=== PATIENT | female | born 1965 | race African-American/Black ===

== ENCOUNTER 2017-08-28 09:29 | Observation (INO) | payer MEDICARE, MEDICAID ==
[2017-08-28] VITALS (10 sets, daily range): BP systolic 101–161; BP diastolic 54–96; PULSE 69–108; RESP 13–22; TEMP 97.9–98.4; O2SAT 97–100
[~2017-08-28] VITALS: Ht 157.5 cm; Wt 79.0 kg
[~2017-08-28 09:29] MED LIST: ADVA100A; AMBI10TA PO; DIOV320T PO; LORA-392 PO; LORTA10 PO; SOMA350T PO
[2017-08-28] MEDS ORDERED: SODIUM CHLOR 0.9% 1000 ML INJ 1,000 ML IV SCH (10:24)
--- NOTE | 2017-08-28 10:28 | PD ---
HPI Chief Complaint: Allergic/Adverse Reaction Time Seen by Provider: 09:46 Travel History International Travel<30 days: No Contact w/Intl Traveler<30days: No Traveled to known affect area: No History of Present Illness HPI The patient is a 51-year-old after [place] female who presents emergency department for allergic reaction. The patient recently took an unknown antibiotic for 7 days for UTI was placed on a muscle relaxer 3 weeks ago. The patient developed diffuse hives on the arms, neck, and legs last night which is progressed. She complains of severe itching, to 2 Benadryl prior to arrival with minimal alleviation of her symptoms. She does complain of occasional difficulty swallowing, but denies any wheezing, shortness breath, nausea, vomiting, or abdominal pain. She does have a history of allergies to amoxicillin and codeine. She cannot recall the name of the antibiotic for the UTI. Symptoms are moderate, possibly exacerbated by taking medications, and there are no current alleviating factors. PFSH Past Medical History Anemia: Yes Arthritis: No Asthma: Yes Autoimmune Disease: No Blood Disorders: No Anxiety: Yes Depression: Yes Cancer: No Cardiovascular Problems: No Chemotherapy: No COPD: No Diabetes: Yes Patient Takes Glucophage: No Diminished Hearing: No Endocrine: No Gastrointestinal Disorders: No Genitourinary: No Hypertension: Yes Immune Disorder: No Musculoskeletal: Yes Neurologic: No Psychiatric: Yes Reproductive: No Respiratory: Yes Radiation Therapy: No Sleep Apnea: No ?: Not : 2 Para: 1 Miscarriage: 0 : 1 Tubal Ligation: Yes (1991) Past Surgical History Abdominal Surgery: No AICD: No Arteriovenous Shunt: No Cardiac Surgery: No Ear Surgery: No Endocrine Surgery: No Eye Surgery: No Genitourinary Surgery: No Gynecologic Surgery: No Insulin Pump: No Joint Replacement: No Neurologic Surgery: Yes (C2-3, C4-5 FUSIONS (NECK SURG X3)) Oral Surgery: No Pacemaker: No Thoracic Surgery: No Other Surgery: Yes Social History Alcohol Use: Yes () Tobacco Use: No (quit 14 years ago ) Substance Use: No Allergies-Medications (Allergen,Severity, Reaction): Coded Allergies: amoxicillin (Unverified Allergy, Severe, Itching, 08/28/17) codeine (Unverified Allergy, Severe, Itching, 08/28/17) Reported Meds & Prescriptions Reported Meds & Active Scripts Active Pepcid (Famotidine) 20 Mg Tab 20 Mg PO BID 5 Days Diphenhydramine (Diphenhydramine HCl) 25 Mg Cap 25 Mg PO Q6H PRN Deltasone (Prednisone) 20 Mg Tab 40 Mg PO DAILY 4 Days Epipen 2-Moy Inj (Epinephrine) 0.3 Mg/0.3 Ml Pfpen 0.3 Mg IM ONCE PRN Reported [muscle relaxer] [antibiotic ] Review of Systems Except as stated in HPI: all other systems reviewed are Neg General / Constitutional: No: Fever HENT: Positive: Other (occasional pain with swallowing and difficulty with swallowing), No: Lightheadedness Cardiovascular: No: Chest Pain or Discomfort Respiratory: No: Shortness of Breath, Wheezing Gastrointestinal: No: Nausea, Vomiting, Abdominal Pain Musculoskeletal: Positive: Edema Skin: Positive Rash, Positive Itching Physical Exam Narrative GENERAL: Awake, alert, pleasant 51-year-old female appears her stated age and is in no acute respiratory distress. SKIN: Focused skin assessment warm/dry. Diffuse hives on the arms, legs, neck, and back. HEAD: Atraumatic. Normocephalic. EYES: Pupils equal and round. No scleral icterus. No injection or drainage. ENT: No nasal bleeding or discharge. Mucous membranes pink and moist. No visible angioedema of the uvula, tongue, or lips. NECK: Trachea midline. No JVD. CARDIOVASCULAR: Regular, tachycardic with a heart rate of 100. RESPIRATORY: No accessory muscle use. Clear to auscultation. Breath sounds equal bilaterally. No audible wheezing. No rebound tenderness. GASTROINTESTINAL: Abdomen soft, non-tender, nondistended. Hepatic and splenic margins not palpable. MUSCULOSKELETAL: No obvious deformities. No clubbing. No cyanosis. No edema. NEUROLOGICAL: Awake and alert. No obvious cranial nerve deficits. Motor grossly within normal limits. Normal speech. PSYCHIATRIC: Appropriate mood and affect; insight and judgment normal. Data Data Last Documented VS Vital Signs Date Time Temp Pulse Resp B/P (MAP) Pulse Ox O2 Delivery O2 Flow Rate FiO2 08/28/17 12:54 109 91/54 08/28/17 12:30 16 99 Room Air 08/28/17 09:30 97.9 Orders Orders Ecg Monitoring (08/28/17 10:24) Iv Access Insert/Monitor (08/28/17 10:24) Oximetry (08/28/17 10:24) Diphenhydramine Inj (Benadryl Inj) (08/28/17 10:30) Methylprednisolone So Succ Inj (Solumedr (08/28/17 10:30) Famotidine Inj (Pepcid Inj) (08/28/17 10:30) Sodium Chlor 0.9% 1000 Ml Inj (Ns 1000 M (08/28/17 10:24) Sodium Chloride 0.9% Flush (Ns Flush) (08/28/17 10:30) Epinephrine (1:1000) Inj (Adrenalin (1:1 (08/28/17 10:30) Diphenhydramine Inj (Benadryl Inj) (08/28/17 12:45) Sodium Chlor 0.9% 1000 Ml Inj (Ns 1000 M (08/28/17 12:45) Epinephrine (1:1000) Inj (Adrenalin (1:1 (08/28/17 12:45) Complete Blood Count With Diff (08/28/17 12:48) Comprehensive Metabolic Panel (08/28/17 12:48) Admit Order (Ed Use Only) (08/28/17 ) [place] [facility] / Telemetry ALMAS.Q8H (08/28/17 13:14) Vital Signs (Adult) Q4H (08/28/17 13:14) Diet Heart Healthy (08/28/17 Lunch) Activity Oob With Assistance (08/28/17 13:14) Morphine Inj (Morphine Inj) (08/28/17 13:30) Ondansetron Inj (Zofran Inj) (08/28/17 13:30) Labs Laboratory Tests Test 08/28/17 12:55 White Blood Count 10.3 TH/MM3 Red Blood Count 4.24 MIL/MM3 Hemoglobin 12.3 GM/DL Hematocrit 36.0 % Mean Corpuscular Volume 85.0 FL Mean Corpuscular Hemoglobin 29.0 PG Mean Corpuscular Hemoglobin Concent 34.1 % Red Cell Distribution Width 15.2 % Platelet Count 396 TH/MM3 Mean Platelet Volume 9.3 FL Neutrophils (%) (Auto) 80.9 % Lymphocytes (%) (Auto) 15.8 % Monocytes (%) (Auto) 2.8 % Eosinophils (%) (Auto) 0.3 % Basophils (%) (Auto) 0.2 % Neutrophils # (Auto) 8.3 TH/MM3 Lymphocytes # (Auto) 1.6 TH/MM3 Monocytes # (Auto) 0.3 TH/MM3 Eosinophils # (Auto) 0.0 TH/MM3 Basophils # (Auto) 0.0 TH/MM3 CBC Comment DIFF FINAL Differential Comment MDM Medical Decision Making Medical Screen Exam Complete: Yes Emergency Medical Condition: Yes Medical Record Reviewed: Yes Interpretation(s) Laboratory Tests Test 08/28/17 12:55 White Blood Count 10.3 TH/MM3 Red Blood Count 4.24 MIL/MM3 Hemoglobin 12.3 GM/DL Hematocrit 36.0 % Mean Corpuscular Volume 85.0 FL Mean Corpuscular Hemoglobin 29.0 PG Mean Corpuscular Hemoglobin Concent 34.1 % Red Cell Distribution Width 15.2 % Platelet Count 396 TH/MM3 Mean Platelet Volume 9.3 FL Neutrophils (%) (Auto) 80.9 % Lymphocytes (%) (Auto) 15.8 % Monocytes (%) (Auto) 2.8 % Eosinophils (%) (Auto) 0.3 % Basophils (%) (Auto) 0.2 % Neutrophils # (Auto) 8.3 TH/MM3 Lymphocytes # (Auto) 1.6 TH/MM3 Monocytes # (Auto) 0.3 TH/MM3 Eosinophils # (Auto) 0.0 TH/MM3 Basophils # (Auto) 0.0 TH/MM3 CBC Comment DIFF FINAL Differential Comment Differential Diagnosis Differential diagnosis includes idiopathic urticaria, allergic reaction, anaphylaxis, dermatitis, medication side effect. Narrative Course IV was established, labs are drawn and sent, and the patient was placed on cardiac telemetry monitoring and continuous pulse ox imaging monitoring. The patient was administered epinephrine 0.3 mg IM. The patient did receive Solu- Medrol 125 mg intravenously, Pepcid 20 mg intravenously, Benadryl 25 mg intravenously with normal saline and 125 mL per hour. The patient was monitored on cardiac monitoring and continuous pulse oximetry monitoring. I did advise the patient she would be observed for 4 hours after the administration of epinephrine IM, patient is comfortable with this plan of care. The patient developed increasing symptoms once again at 2030 p.m. with right leg pain as well as new lesions on the right leg. The patient's systolic blood pressure was in the 90s, heart rate was in the 90s, and she had returning symptoms. Therefore, the patient was administered another dose of IV fluids, Benadryl, and epinephrine IM. The patient will be 23 hour observation. The on- call medical team was paged for 23 hour observation. The patient complained of right leg pain with the return of the urticaria. It did appear to be over the uric area site, did not appear to be related to the injection site. She had positive dorsalis pedal pulses. The skin was not taut , did not appear to be a compartment syndrome are identifiable hematoma. The patient's systolic blood pressure improved to 168, therefore, the patient was animal therapist morphine and Zofran. I discussed the patient with Dr. Lopez who agrees with 23 hour observation. Critical Care Narrative Aggregate critical care time was 35 minutes. Time to perform other separately billable procedures was not included in the critical care time. My time did not include minutes spent treating any other patients simultaneously or on activities that did not directly contribute to the patient's treatment. The services I provided to this patient were to treat and/or prevent clinically significant deterioration that could result in: Anoxia, hypoxia, anaphylaxis, stridor, . I provided critical care services requiring my management, as noted below: Chart data review, documentation time, medication orders and management, vital sign assessments/reviewing monitor data, ordering and reviewing lab tests, ordering and interpreting/reviewing x-rays and diagnostic studies, care of the patient and discussion of the patient with the admitting physicians. Physician Communication Physician Communication The on-call medical team was paged for 23 hour observation. I discussed the patient with Dr. Medellin who agrees with 23 hour observation. Diagnosis Primary Impression: Idiopathic urticaria Additional Impression: Allergic reaction Qualified Codes: T78.40XA - Allergy, unspecified, initial encounter Admitting Information Admitting Physician Requests: Observation Patient Instructions: General Instructions Additional Instructions: Medications as directed. Follow-up with her primary physician. Return if symptoms worsen or progress. Med/Other Pt SpecificInfo: Prescription(s) given Scripts Famotidine (Pepcid) 20 Mg Tab 20 MG PO BID for 5 Days, #10 TAB 0 Refills Prov: Triston Castellanos MD 08/28/17 Diphenhydramine (Diphenhydramine) 25 Mg Cap 25 MG PO Q6H Y for ALLERGIES, #20 CAP 0 Refills Prov: Triston Castellanos MD 08/28/17 Prednisone (Deltasone) 20 Mg Tab 40 MG PO DAILY for 4 Days, #8 TAB 0 Refills Prov: Triston Castellanos MD 08/28/17 Epinephrine Inj (Epipen 2-Moy Inj) 0.3 Mg/0.3 Ml Pfpen 0.3 MG IM ONCE Y for ALLERGIC REACTION, #1 PACK 0 Refills Prov: Triston Castellanos MD 08/28/17 Condition: Stable Triston Castellanos MD Aug 28, 2017 10:28
[2017-08-28] MEDS ORDERED: diphenhydrAMINE HCL 50 MG/ML VIAL IVP ONE (10:30)
[2017-08-28] MEDS ORDERED: methylPREDNISolone SOD SUCC 125 MG/2 ML VIAL IV PUSH ONE (10:30)
[2017-08-28] MEDS ORDERED: SODIUM CHLORIDE 0.9% FLUSH 10 ML FLUSH IV FLUSH PRN ×2 (10:30→13:30)
[2017-08-28] MEDS ORDERED: EPINEPHrine HCL (1:1000) 1 MG/ML VIAL IM ONE ×2 (10:30→12:45)
[2017-08-28] MEDS ORDERED: FAMOTIDINE 20 MG/2 ML VIAL IV PUSH ONE (10:30)
[2017-08-28] MEDS ORDERED: antibiotic (10:49)
[2017-08-28] MEDS ORDERED: muscle relaxer (10:49)
[2017-08-28] MEDS ORDERED: PRED-503 PO (12:31)
[2017-08-28] MEDS ORDERED: EPIP0.3I IM (12:31)
[2017-08-28] MEDS ORDERED: DIPH25CA PO (12:31)
[2017-08-28] MEDS ORDERED: FAMO1TAB37 PO (12:31)
[2017-08-28] MEDS ORDERED: SODIUM CHLOR 0.9% 1000 ML INJ 1,000 ML IV ONE (12:45)
[2017-08-28] MEDS ORDERED: diphenhydrAMINE HCL 50 MG/ML VIAL IV PUSH ONE (12:45)
[2017-08-28 13:13] LABS: AUTOMATED NEUTROPHIL # 8.3 TH/MM3 (1.8-7.7); BASOPHIL % 0.2 % (0.0-2.0); EOSINOPHIL % 0.3 % (0.0-4.0); HEMO FLAGS DIFF FINAL; LYMPH % 15.8 % (9.0-44.0); LYMPHOCYTE # 1.6 TH/MM3 (1.0-4.8); MEAN CORPUSCULAR HGB CONC 34.1 % (32.0-36.0); MONO % 2.8 % (0.0-8.0); NEUT % 80.9 % (16.0-70.0); PLATELET COUNT 396 TH/MM3 (150-450); RED BLOOD COUNT 4.24 MIL/MM3 (4.00-5.30); RED CELL DISTRIBUTION WIDTH 15.2 % (11.6-17.2); WHITE BLOOD COUNT 10.3 TH/MM3 (4.0-11.0)
[2017-08-28] MEDS ORDERED: ONDANSETRON HCL 4 MG/2 ML VIAL IV PUSH ONE (13:30)
[2017-08-28] MEDS ORDERED: MORPHINE SULFATE 4 MG/ML INJ IV PUSH ONE (13:30)
[2017-08-28] MEDS ORDERED: NALOXONE HCL 0.4 MG/ML AMP IV PUSH PRN (13:30)
--- NOTE | 2017-08-28 13:51 | HHI.HP ---
HPI Service [facility] Primary Care Physician Peewee Abdalla, DO Admission Diagnosis anaphylaxis, idiopathic urticaria Diagnoses: Travel History International Travel<30 Days: No Contact w/Intl Traveler <30 Da: No Traveled to Known Affected Are: No History of Present Illness woke up with severe itching scratched all over and had welts starting at home, painful, burning was feelig of throat closing took benadryl no help family brought her in er, got epit and shots after that RLE extereme pain antibiotics was presecribed 7 days course, finished it about 1 week ago or longer soma was stopped and started new msucles [facility] took that since last appointment- which was 2 weeks or longer ago- end of last month new home not allergic to soap or detergens that she knows of has hx of asthma and dm has runny nose and lots of coughing at night past few day no fever pain on urination urinary frequency with less amount coming out pains in chest past few days, and some stomach pain no diarrhea threw up once 3 days ago, no black or red color felt dizzy little bit on thursday Past Family Social History Past Medical History htn dm asthma- twice a day neb use hx of intubation only for neck sx and maybe 24hrs due to asthma post op Past Surgical History neck surgery - from trauma- take or put a bone in it- wore a collar for over a year ; about 3 yrs ago or longer tubes tied hysterectomy heel sx left elbow sx \ Reported Medications [facility] 30units at night lortab 10 soma is stopped panic attack med- blood pressure med ambien acid reflux med Allergies: Coded Allergies: amoxicillin (Unverified Allergy, Severe, Itching, 08/28/17) codeine (Unverified Allergy, Severe, Itching, 08/28/17) Family History mom, sister- thyroid problems mom- liver problem, dm Social History used to smoke, quit 14yrs ago has not had a drink for about 3 weeks, ususally 2 liquor - about a pint every other day no drugs Physical Exam Vital Signs Vital Signs Date Time Temp Pulse Resp B/P (MAP) Pulse Ox O2 Delivery O2 Flow Rate FiO2 08/28/17 12:54 109 91/54 08/28/17 12:30 92 16 101/62 (75) 99 Room Air 08/28/17 10:45 99 Room Air 08/28/17 10:45 99 17 124/86 (99) 100 Room Air 08/28/17 10:44 99 129/67 08/28/17 09:42 18 100 08/28/17 09:30 97.9 108 13 131/82 (98) 99 Physical Exam GENERAL: This is a well-nourished, well-developed patient, in no apparent distress. SKIN: No rashes, ecchymoses or lesions. Cool and dry. HEAD: Atraumatic. Normocephalic. No temporal or scalp tenderness. EYES: Pupils equal round and reactive. Extraocular motions intact. No scleral icterus. No injection or drainage. ENT: Nose without bleeding, purulent drainage or septal hematoma. Throat without erythema, tonsillar hypertrophy or exudate. Uvula midline. Airway patent. NECK: Trachea midline. No JVD or lymphadenopathy. Supple, nontender, no meningeal signs. CARDIOVASCULAR: Regular rate and rhythm without murmurs, gallops, or rubs. RESPIRATORY: Clear to auscultation. Breath sounds equal bilaterally. No wheezes , rales, or rhonchi. GASTROINTESTINAL: Abdomen soft, non-tender, nondistended. No hepato-splenomegaly , or palpable masses. No guarding. MUSCULOSKELETAL: Extremities without clubbing, cyanosis, or edema. No joint tenderness, effusion, or edema noted. No calf tenderness. Negative Homans sign bilaterally. NEUROLOGICAL: Awake and alert. Cranial nerves II through XII intact. Motor and sensory grossly within normal limits. Five out of 5 muscle strength in all muscle groups. Normal speech. Laboratory Laboratory Tests Test 08/28/17 12:55 White Blood Count 10.3 Red Blood Count 4.24 Hemoglobin 12.3 Hematocrit 36.0 Mean Corpuscular Volume 85.0 Mean Corpuscular Hemoglobin 29.0 Mean Corpuscular Hemoglobin Concent 34.1 Red Cell Distribution Width 15.2 Platelet Count 396 Mean Platelet Volume 9.3 Neutrophils (%) (Auto) 80.9 Lymphocytes (%) (Auto) 15.8 Monocytes (%) (Auto) 2.8 Eosinophils (%) (Auto) 0.3 Basophils (%) (Auto) 0.2 Neutrophils # (Auto) 8.3 Lymphocytes # (Auto) 1.6 Monocytes # (Auto) 0.3 Eosinophils # (Auto) 0.0 Basophils # (Auto) 0.0 CBC Comment DIFF FINAL Differential Comment Result Diagram: 08/28/17 1255 Caprini VTE Risk Assessment Caprini Risk Assessment Model Point Value = 1 Point Value = 2 Point Value = 3 Point Value = 5 Age 41-60 Minor surgery BMI > 25 kg/m2 Swollen legs Varicose veins or History of unexplained or recurrent spontaneous Oral contraceptives or hormone replacement Sepsis (< 1 month) Serious lung disease, including pneumonia (< 1 month) Abnormal pulmonary function Acute myocardial infarction Congestive heart failure (< 1 month) History of inflammatory bowel disease Medical patient at bed rest Age 61-74 Arthroscopic surgery Major open surgery (> 45 min) Laparoscopic surgery (> 45 min) Malignancy Confined to bed (> 72 hours) Immobilizing plaster cast Central venous access Age >= 75 History of VTE Family history of VTE Factor V Leiden Prothrombin [id number] Lupus anticoagulant Anticardiolipin antibodies Elevated serum homocysteine Heparin-induced thrombocytopenia Other congenital or acquired thrombophilia Stroke (< 1 month) Elective arthroplasty Hip, pelvis, or leg fracture Acute spinal cord injury (< 1 month) Prophylaxis Regimen Total Risk Factor Score Risk Level Prophylaxis Regimen 0-1 Low Early ambulation 2 Moderate Order ONE of the following: *Sequential Compression Device (SCD) *Heparin 5000 units SQ BID 3-4 Higher Order ONE of the following medications: *Heparin 5000 units SQ TID *Enoxaparin/Lovenox 40 mg SQ daily (WT < 150 kg, CrCl > 30 mL/min) *Enoxaparin/Lovenox 30 mg SQ daily (WT < 150 kg, CrCl > 10-29 mL/min) *Enoxaparin/Lovenox 30 mg SQ BID (WT < 150 kg, CrCl > 30 mL/min) AND/OR *Sequential Compression Device (SCD) 5 or more Highest Order ONE of the following medications: *Heparin 5000 units SQ TID (Preferred with Epidurals) *Enoxaparin/Lovenox 40 mg SQ daily (WT < 150 kg, CrCl > 30 mL/min) *Enoxaparin/Lovenox 30 mg SQ daily (WT < 150 kg, CrCl > 10-29 mL/min) *Enoxaparin/Lovenox 30 mg SQ BID (WT < 150 kg, CrCl > 30 mL/min) AND *Sequential Compression Device (SCD) Assessment and Plan Assessment and Plan allergic rxn - source unknown recent uti chest pain on and off Gerard Medellin MD Aug 28, 2017 13:51
[2017-08-28 13:58] LABS: ALT (GPT) 27 U/L (10-53); ANION GAP 9 MEQ/L (5-15); AST (GOT) 27 U/L (15-37); BICARBONATE 25.3 MEQ/L (21.0-32.0); BLOOD UREA NITROGEN 22 MG/DL (7-18); CHLORIDE 101 MEQ/L (98-107); GLOMERULAR FILTRATION RATE 78 ML/MIN (>89); POTASSIUM 3.4 MEQ/L (3.5-5.1); SODIUM (NA) 135 MEQ/L (136-145)
[2017-08-28 14:00] LABS: ALKALINE PHOSPHATASE 89 U/L (45-117); TOTAL BILIRUBIN ADULT 0.5 MG/DL (0.2-1.0)
[2017-08-28] MEDS ORDERED: LORazepam 2 MG/ML VIAL IV PUSH ONE (14:00)
[2017-08-28] MEDS ORDERED: GLUCAGON 1 MG/ML VIAL OTHER PRN (14:00)
[2017-08-28] MEDS ORDERED: DEXTROSE 50% IN WATER 50 ML SYRINGE IV PUSH PRN (14:00)
[2017-08-28] MEDS: SODIUM CHLOR 0.9% 1000 ML INJ 1,000 ML IV SCH ×2 (14:56→21:06)
[2017-08-28] MEDS: diphenhydrAMINE HCL 50 MG/ML VIAL IV PUSH PRN (17:51)
[2017-08-28] MEDS: INSULIN ASPART SUPPLEMENTAL SCALE SQ SCH ×2 (17:51→21:56)
[2017-08-28] MEDS: methylPREDNISolone SOD SUCC 125 MG/2 ML VIAL IV PUSH PRN (21:05)
[2017-08-28] MEDS: SODIUM CHLORIDE 0.9% FLUSH 10 ML FLUSH IV FLUSH SCH (21:06)
[2017-08-28 23:07] LABS: CREATINE KINASE 249 U/L (26-192)
[2017-08-28 23:19] LABS: CKMB 0.9 NG/ML (0.5-3.6)
[2017-08-29] VITALS (10 sets, daily range): BP systolic 105–131; BP diastolic 59–86; PULSE 61–84; RESP 18; TEMP 97.5–98.6; O2SAT 98–100
[2017-08-29] MEDS: diphenhydrAMINE HCL 50 MG/ML VIAL IV PUSH PRN (07:37)
[2017-08-29] MEDS: SODIUM CHLORIDE 0.9% FLUSH 10 ML FLUSH IV FLUSH SCH ×2 (07:37→21:42)
[2017-08-29] MEDS ORDERED: MAGNESIUM HYDROXIDE SUSP 30 ML CUP PO PRN (08:45)
[2017-08-29] MEDS ORDERED: SENNOSIDES 8.6 MG TAB PO PRN (08:45)
[2017-08-29] MEDS ORDERED: ONDANSETRON HCL 4 MG/2 ML VIAL IVP PRN (08:45)
[2017-08-29] MEDS ORDERED: BISACODYL 10 MG SUPP RECTAL PRN (08:45)
[2017-08-29] MEDS ORDERED: NALOXONE HCL 0.4 MG/ML AMP IV PUSH PRN (08:45)
[2017-08-29] MEDS ORDERED: LACTULOSE SYRUP 20 GM/30 ML CUP PO PRN (08:45)
[2017-08-29] MEDS ORDERED: ACETAMINOPHEN 325 MG TAB PO PRN (08:45)
[2017-08-29] MEDS: FAMOTIDINE 20 MG TAB PO SCH ×2 (09:36→21:41)
[2017-08-29] MEDS: INSULIN ASPART SUPPLEMENTAL SCALE SQ SCH ×4 (09:36→22:05)
[2017-08-29] MEDS: DOCUSATE SODIUM 50 MG/SENNA 8.6 MG TAB PO SCH ×2 (09:36→21:41)
[2017-08-29] MEDS: ACETAMINOPHEN 325 MG TAB PO PRN ×3 (10:07→23:48)
[2017-08-29] MEDS: SODIUM CHLOR 0.9% 1000 ML INJ 1,000 ML IV SCH (10:39)
[2017-08-29] MEDS: methylPREDNISolone SOD SUCC 125 MG/2 ML VIAL IV PUSH PRN (10:39)
[2017-08-29 11:23] LABS: ANION GAP 9 MEQ/L (5-15); BLOOD UREA NITROGEN 17 MG/DL (7-18); CHLORIDE 103 MEQ/L (98-107); GLOMERULAR FILTRATION RATE 84 ML/MIN (>89); MAGNESIUM 2.2 MG/DL (1.5-2.5); POTASSIUM 3.5 MEQ/L (3.5-5.1); SODIUM (NA) 137 MEQ/L (136-145)
[2017-08-29 11:28] LABS: CREATINE KINASE 200 U/L (26-192)
[2017-08-29 11:40] LABS: CKMB 0.7 NG/ML (0.5-3.6)
[2017-08-29] MEDS ORDERED: INSULIN ASPART SUPPLEMENTAL SCALE SQ SCH (12:00)
[2017-08-29] MEDS: diphenhydrAMINE HCL 25 MG CAP PO SCH ×3 (13:07→23:49)
[2017-08-29] MEDS: CALAMINE/PRAMOXINE LOTION 180 ML BTL TOPICAL SCH ×2 (13:07→21:41)
--- NOTE | 2017-08-29 14:10 | HHI.PR ---
Subjective Remarks Follow-up allergic reaction. Still with itching but denies throat swelling and shortness of breath. Denies chest pain and abdominal pain. Still with urinary frequency. Discussed with RN Objective Vitals Vital Signs Date Time Temp Pulse Resp B/P (MAP) Pulse Ox O2 Delivery O2 Flow Rate FiO2 08/29/17 08:06 97.5 68 18 109/59 (76) 100 08/29/17 08:04 69 08/29/17 05:06 97.5 81 18 118/75 (89) 98 08/29/17 04:10 72 08/29/17 00:35 98.1 74 18 105/73 (84) 98 08/29/17 00:05 79 08/28/17 21:24 98.4 79 18 112/54 (73) 97 08/28/17 20:30 81 08/28/17 17:00 96 08/28/17 16:52 98.0 88 22 124/75 (91) 99 08/28/17 16:17 95 18 159/91 (113) 99 08/28/17 14:12 97 17 161/96 (117) 98 Room Air I/O 08/28/17 08/28/17 08/28/17 08/29/17 08/29/17 08/29/17 07:00 15:00 23:00 07:00 15:00 23:00 Intake Total 1380 ml 800 ml 240 ml Output Total 900 ml Balance 1380 ml -100 ml 240 ml Intake Oral 500 ml 240 ml IV Total 1380 ml 300 ml Output Urine Total 900 ml # Voids 1 Result Diagram: 08/28/17 1255 08/29/17 1000 Objective Remarks GENERAL: Well-developed, well-nourished in no distress SKIN: Warm and dry. Hyperemia specially in the shoulders and extremities HEAD: Atraumatic. Normocephalic. EYES: Pupils equal and round. No scleral icterus. No injection or drainage. ENT: No nasal bleeding or discharge. Mucous membranes pink and moist. No tongue swelling NECK: Trachea midline. No JVD. CARDIOVASCULAR: Regular rate and rhythm. RESPIRATORY: No accessory muscle use. Clear to auscultation. Breath sounds equal bilaterally. GASTROINTESTINAL: Abdomen soft, non-tender, nondistended. MUSCULOSKELETAL: Extremities without clubbing, cyanosis, or edema. No obvious deformities. NEUROLOGICAL: Awake and alert. No obvious cranial nerve deficits. Motor grossly within normal limits. Five out of 5 muscle strength in the arms and legs. Normal speech. PSYCHIATRIC: Appropriate mood and affect; insight and judgment normal. Procedures none A/P Problem List: (1) Allergic reaction ICD Code: T78.40XA - Allergy, unspecified, initial encounter Status: Acute Assessment and Plan Allergic reaction from ciprofloxacin and methocarbamol. Improving continue steroids, antihistamine and H2 brittany. Patient counseled Recent UTI. Still with urinary frequency. Repeat urinalysis Hypokalemia. Replaced Hypertension. Stable continue to monitor. RN to update medication list Diabetes mellitus. Expect hyperglycemia secondary to steroids. Monitor fingerstick with sliding scale coverage DVT prophylaxis with SCD and early ambulation RN to update medication list Discharge Planning Possible discharge later today or in the morning Problem Qualifiers (1) Allergic reaction: Qualified Codes: T78.40XA - Allergy, unspecified, initial encounter Thuan Dale MD Aug 29, 2017 14:10
[2017-08-29] MEDS: methylPREDNISolone SOD SUCC 125 MG/2 ML VIAL IV PUSH SCH ×2 (17:25→23:49)
[2017-08-29 22:27] LABS: BLOOD, URINE NEG (NEG); COMMENT (UR) CULT NOT INDICATED; CULTURE IF INDICATED CULT NOT INDICATED; GLUCOSE,URINE 300 mg/dL (NEG); KETONE, URINE NEG (NEG); NITRITE,URINE NEG (NEG); SQUAMOUS EPITHELIAL CELL URINE 1 /hpf (0-5); TRANSITIONAL EPI CELLS, URINE <1 /hpf; URINE COLOR YELLOW (YELLW/STRAW)
[2017-08-30] VITALS (7 sets, daily range): BP systolic 127–179; BP diastolic 67–96; PULSE 60–74; RESP 16–19; TEMP 97.6–98.3; O2SAT 99–100
[2017-08-30] MEDS: diphenhydrAMINE HCL 25 MG CAP PO SCH (05:41)
[2017-08-30] MEDS: methylPREDNISolone SOD SUCC 125 MG/2 ML VIAL IV PUSH SCH (05:43)
[2017-08-30] MEDS ORDERED: DIPH25CA PO (08:40)
[2017-08-30] MEDS ORDERED: EPIP0.3I IM (08:40)
[2017-08-30] MEDS ORDERED: ZANT150T2 PO (08:40)
[2017-08-30] MEDS ORDERED: PRED-503 PO (08:40)
--- NOTE | 2017-08-30 08:40 | HHI.DCPOC ---
Discharge Care Plan Diagnosis: (1) Allergic reaction Goals to Promote Your Health * To prevent worsening of your condition and complications * To maintain your health at the optimal level Directions to Meet Your Goals Take your medications as prescribed Follow your dietary instruction Follow activity as directed Keep your appointments as scheduled Take your immunizations and boosters as scheduled If your symptoms worsen call your PCP, if no PCP go to Urgent Care Center or Emergency Room Smoking is Dangerous to Your Health. Avoid second hand smoke Call the 24-hour hour crisis hotline for domestic abuse at Claudette Perez PA-C Aug 30, 2017 8:40 am
[2017-08-30] MEDS: CALAMINE/PRAMOXINE LOTION 180 ML BTL TOPICAL SCH (09:47)
[2017-08-30] MEDS: DOCUSATE SODIUM 50 MG/SENNA 8.6 MG TAB PO SCH (09:48)
[2017-08-30] MEDS: FAMOTIDINE 20 MG TAB PO SCH (09:48)
[2017-08-30] MEDS: INSULIN ASPART SUPPLEMENTAL SCALE SQ SCH ×3 (09:48→17:00)
[2017-08-30] MEDS: SODIUM CHLORIDE 0.9% FLUSH 10 ML FLUSH IV FLUSH SCH (09:49)
[2017-08-30] MEDS ORDERED: INSULIN DETEMIR 100 UNITS/ML VIAL SQ ONE (10:30)
[2017-08-30] MEDS ORDERED: predniSONE 20 MG TAB PO SCH (10:30)
[2017-08-30] MEDS ORDERED: diphenhydrAMINE HCL 25 MG CAP PO PRN (10:30)
[2017-08-30] MEDS ORDERED: OMEP40CA2 PO (14:10)
[2017-08-30] MEDS ORDERED: CITA20TA4 PO (14:10)
[2017-08-30] MEDS ORDERED: LOSA100T PO (14:10)
[2017-08-30] MEDS ORDERED: CIPR-9 PO (14:10)
[2017-08-30] MEDS ORDERED: LORA0.5T PO (14:10)
--- NOTE | 2017-08-30 14:57 | HHI.PR ---
Subjective Remarks Follow-up of allergic reaction. States she is improving but continues to have itching denies shortness of breath or throat swelling. Still trying to obtain medication list. Possibly patient on ARB which I explained to the patient could Possibly caused her symptoms. She's calling her family to bring in all her bottles discussed with RN Objective Vitals Vital Signs Date Time Temp Pulse Resp B/P (MAP) Pulse Ox O2 Delivery O2 Flow Rate FiO2 08/30/17 11:58 98.3 65 19 143/85 (104) 100 08/30/17 08:02 97.6 74 16 128/67 (87) 99 08/30/17 00:25 60 127/74 (91) 08/30/17 00:04 98.1 63 18 179/86 (117) 100 08/30/17 00:00 71 08/29/17 20:15 61 08/29/17 19:59 98.6 84 18 122/75 (91) 100 08/29/17 17:20 62 08/29/17 15:54 97.6 75 18 131/86 (101) 99 I/O 08/29/17 08/29/17 08/29/17 08/30/17 08/30/17 08/30/17 07:00 15:00 23:00 07:00 15:00 23:00 Intake Total 240 ml 200 ml 120 ml 1200 ml Balance 240 ml 200 ml 120 ml 1200 ml Intake Oral 240 ml 120 ml 1200 ml IV Total 200 ml # Voids 1 1 1 # Bowel Movements 0 Result Diagram: 08/28/17 1255 08/29/17 1000 Objective Remarks GENERAL: Well-developed, well-nourished in no distress SKIN: Warm and dry. Improving dermatitis CARDIOVASCULAR: Regular rate and rhythm. RESPIRATORY: No accessory muscle use. Clear to auscultation. Breath sounds equal bilaterally. GASTROINTESTINAL: Abdomen soft, non-tender, nondistended. MUSCULOSKELETAL: Extremities without clubbing, cyanosis, or edema. No obvious deformities. NEUROLOGICAL: Awake and alert. No obvious cranial nerve deficits. Motor grossly within normal limits. Five out of 5 muscle strength in the arms and legs. Normal speech. PSYCHIATRIC: Appropriate mood and affect; insight and judgment normal. Procedures none A/P Problem List: (1) Allergic reaction ICD Code: T78.40XA - Allergy, unspecified, initial encounter Status: Acute Assessment and Plan Allergic reaction from ciprofloxacin and methocarbamol. Maybe also secondary to ARB pending confirmation. Improving continue steroids, antihistamine and H2 brittany. Patient counseled Recent UTI. Still with urinary frequency. Repeat urinalysis unremarkable Hypokalemia. Replaced Hypertension. Stable continue to monitor. RN to update medication list Diabetes mellitus. Expect hyperglycemia secondary to steroids. We will restart home medication Lantus which is not in the available in-house will give instead Levemir 30 units once 1 now and at bedtime monitor fingerstick with sliding scale coverage DVT prophylaxis with SCD and early ambulation RN to update medication list Discharge Planning Possible discharge later today or in the morning Problem Qualifiers (1) Allergic reaction: Qualified Codes: T78.40XA - Allergy, unspecified, initial encounter Thuan Dale MD Aug 30, 2017 14:57
[2017-08-30] MEDS ORDERED: LANTUS2P SQ (16:50)
[2017-08-30] MEDS ORDERED: INSULIN ASPART SUPPLEMENTAL SCALE SQ SCH (17:00)
[2017-08-30] MEDS ORDERED: INSULIN DETEMIR 100 UNITS/ML VIAL SQ SCH (21:00)
--- NOTE | 2017-08-31 05:13 | HHI.DS ---
Discharge Summary Admission Date Aug 28, 2017 at 13:16 Discharge Date: Aug 31, 2017 Admitting Diagnosis anaphylaxis, idiopathic urticaria (1) Allergic reaction ICD Code: T78.40XA - Allergy, unspecified, initial encounter Diagnosis: Principal Status: Acute Procedures none Brief History - From Admission woke up with severe itching scratched all over and had welts starting at home, painful, burning was feelig of throat closing took benadryl no help family brought her in er, got epit and shots after that RLE extereme pain antibiotics was presecribed 7 days course, finished it about 1 week ago or longer soma was stopped and started new [facility] took that since last appointment- which was 2 weeks or longer ago- end of last month new home not allergic to soap or detergens that she knows of has hx of asthma and dm has runny nose and lots of coughing at night past few day no fever pain on urination urinary frequency with less amount coming out pains in chest past few days, and some stomach pain no diarrhea threw up once 3 days ago, no black or red color felt dizzy little bit on thursday CBC/BMP: 08/28/17 1255 08/29/17 1000 Significant Findings Laboratory Tests Test 08/28/17 12:55 08/28/17 13:30 08/29/17 10:00 08/29/17 22:00 Neutrophils (%) (Auto) 80.9 % (16.0-70.0) Neutrophils # (Auto) 8.3 TH/MM3 (1.8-7.7) Blood Urea Nitrogen 22 MG/DL (7-18) Random Glucose 192 MG/DL (74-106) 184 MG/DL (74-106) Calcium Level 7.9 MG/DL (8.5-10.1) 8.3 MG/DL (8.5-10.1) Sodium Level 135 MEQ/L (136-145) Potassium Level 3.4 MEQ/L (3.5-5.1) Estimat Glomerular Filtration Rate 78 ML/MIN (>89) 84 ML/MIN (>89) Total Creatine Kinase 249 U/L (26-192) 200 U/L (26-192) Troponin I LESS THAN 0.02 NG/ML LESS THAN 0.02 NG/ML Urine Glucose (UA) 300 mg/dL (NEG) Urine Leukocyte Esterase SMALL (NEG) Test 08/30/17 11:33 PE at Discharge GENERAL: Well-developed, well-nourished in no distress SKIN: Warm and dry. Improving dermatitis CARDIOVASCULAR: Regular rate and rhythm. RESPIRATORY: No accessory muscle use. Clear to auscultation. Breath sounds equal bilaterally. GASTROINTESTINAL: Abdomen soft, non-tender, nondistended. MUSCULOSKELETAL: Extremities without clubbing, cyanosis, or edema. No obvious deformities. NEUROLOGICAL: Awake and alert. No obvious cranial nerve deficits. Motor grossly within normal limits. Five out of 5 muscle strength in the arms and legs. Normal speech. PSYCHIATRIC: Appropriate mood and affect; insight and judgment normal. Hospital Course Allergic reaction from ciprofloxacin, methocarbamol and losartan. Improving continue steroids, antihistamine and H2 brittany. Patient counseled Recent UTI. Repeat urinalysis unremarkable Hypokalemia. Replaced Hypertension. Stable continue to monitor. RN to update medication list. Pt to record BP readings at home and show to PCP Diabetes mellitus. Expect hyperglycemia secondary to steroids. Levemir with sliding scale coverage DVT prophylaxis with SCD and early ambulation Pt Condition on Discharge: Stable Discharge Disposition: Discharge Home Discharge Time: > 30 minutes Discharge Instructions DIET: Follow Instructions for: Heart Healthy Diet, Diabetic Diet Activities you can perform: Regular-No Restrictions Follow up Referrals: PCP Follow-up - 1 Week with Peewee Abdalla DO New Medications: Ranitidine (Zantac) 150 Mg Tab 150 MG PO BID for Allergic Reaction, #10 TAB 0 Refills Continued Medications: Citalopram (Citalopram) 20 Mg Tab 20 MG PO DAILY for Control Depression, #30 TAB 0 Refills Diphenhydramine (Diphenhydramine) 25 Mg Cap 25 MG PO Q6H PRN for ALLERGIES, #20 CAP 0 Refills (This prescription has been renewed) Epinephrine Inj (Epipen 2-Moy Inj) 0.3 Mg/0.3 Ml Pfpen 0.3 MG IM ONCE PRN for ALLERGIC REACTION, #1 PACK 0 Refills (This prescription has been renewed) Insulin Glargine Inj (Lantus Inj) 1,000 Unit/10 Ml Vial 30 UNITS SQ HS for Blood Sugar Management, #100 VIAL 0 Refills Lorazepam (Lorazepam) 0.5 Mg Tab 0.5 MG PO HS PRN for ANXIETY AND/OR INSOMNIA, TAB 0 Refills Omeprazole (Omeprazole) 40 Mg Cap 40 MG PO DAILY, #30 CAP 0 Refills Prednisone (Deltasone) 20 Mg Tab 40 MG PO DAILY for Allergic Reaction, #5 TAB 0 Refills (This prescription has been renewed) Discontinued Medications: Ciprofloxacin (Cipro) 500 Mg Tab 500 MG PO BID for Infection, TAB 0 Refills Famotidine (Pepcid) 20 Mg Tab 20 MG PO BID for 5 Days, #10 TAB 0 Refills Losartan (Losartan) 100 Mg Tab 100 MG PO DAILY for Blood Pressure Management, #30 TAB 0 Refills [antibiotic ] () [muscle relaxer] () Thuan Dale MD Aug 31, 2017 05:13
[2017-08-31 15:45] LABS: HEMOGLOBIN A1a 1.6 %; HEMOGLOBIN A1b 2.3 %; HEMOGLOBIN Ao 80.8 %; HEMOGLOBIN LA1C 3.6 %; HEMOGLOBIN P3 4.7 %
== END 2017-08-30 18:26 | disposition home or self-care (01) ==
LOC: NEPD 09:29 → NEDA 13:16 → NEPHCDU 16:21
PROVIDERS: ADMIT Internal Medicine; ATTEND Internal Medicine
DX: N39.0 Urinary tract infection, site not specified (principal); R07.9 Chest pain, unspecified; L50.1 Idiopathic urticaria; T78.40XA Allergy, unspecified, initial encounter; M79.604 Pain in right leg; R35.0 Frequency of micturition; E87.6 Hypokalemia; R42 Dizziness and giddiness; R30.0 Dysuria; I10 Essential (primary) hypertension; J45.909 Unspecified asthma, uncomplicated; E11.65 Type 2 diabetes mellitus with hyperglycemia; F41.9 Anxiety disorder, unspecified; F32.9 Major depressive disorder, single episode, unspecified; Z87.891 Personal history of nicotine dependence
CPT/HCPCS: 80048; 80053; 81001; 82550; 82552; 82948; 83036; 83690; 83735; 84484; 85025; 96361; 96372; 96374; 96375; 96376; 99285; G0378; J0171; J1200; J1815; J2060; J2270; J2405; J2930; J7030; J7512

== ENCOUNTER 2017-09-10 19:35 | Emergency (ER) | payer MEDICARE, MEDICAID ==
[~2017-09-10] VITALS: Ht 157.5 cm; Wt 80.0 kg
[~2017-09-10 19:35] MED LIST changes: -ADVA100A; -AMBI10TA PO; +CITA20TA4 PO; -DIOV320T PO; +DIPH25CA PO; +EPIP0.3I IM; +LANTUS2P SQ; -LORA-392 PO; +LORA0.5T PO; -LORTA10 PO; +OMEP40CA2 PO; +PRED-503 PO; -SOMA350T PO; +ZANT150T2 PO
[2017-09-10 19:39] VITALS: BP 174/116; PULSE 92; RESP 24; TEMP 100.5; O2SAT 98
[2017-09-10 20:17] VITALS: BP 179/134; PULSE 104; RESP 28; O2SAT 99
[2017-09-10] MEDS ORDERED: MORPHINE SULFATE 2 MG/ML INJ IV PUSH ONE ×3 (20:30→22:00)
[2017-09-10] MEDS ORDERED: ONDANSETRON HCL 4 MG/2 ML VIAL IV PUSH ONE (20:30)
--- NOTE | 2017-09-10 20:37 | PD ---
HPI Chief Complaint: Chest Pain Time Seen by Provider: 20:09 Travel History International Travel<30 days: No Contact w/Intl Traveler<30days: No Traveled to known affect area: No History of Present Illness HPI Patient is a 51-year-old female presenting to emergency for evaluation of left chest pain. Pain started approximately an hour prior to arrival. She states pain is a 10 out of 10, she states that she felt anxious earlier and took anxiety medication. She reports feeling short of breath and nauseated. Family states that she was out having dinner when she arrived home the symptoms started. Patient is not taking any medications for the pain. HPI is difficult to elicit due to patient's pain. After patient was settled down, she states the pain started suddenly, she feels short of breath. She had been feeling fine after she was discharged from the hospital until this afternoon when the pain started again. She was recently admitted due to anaphylactic reaction. Patient denies feeling anxious. PFSH Past Medical History Anemia: Yes Arthritis: No Asthma: Yes Autoimmune Disease: No Blood Disorders: No Anxiety: Yes Depression: Yes Heart Rhythm Problems: No Cancer: No Cardiovascular Problems: No High Cholesterol: No Chemotherapy: No Chest Pain: No Congestive Heart Failure: No COPD: No Diabetes: Yes Patient Takes Glucophage: No Diminished Hearing: No Endocrine: No Gastrointestinal Disorders: No Genitourinary: No Hypertension: Yes Immune Disorder: No Musculoskeletal: Yes Neurologic: No Psychiatric: Yes Reproductive: No Respiratory: Yes Migraines: Yes (PT HAS HAS OF UNSPECIFIED KIND) Radiation Therapy: No Sleep Apnea: No ?: Not : 2 Para: 1 Miscarriage: 0 : 1 Tubal Ligation: Yes (1991) Past Surgical History Abdominal Surgery: No AICD: No Arteriovenous Shunt: No Cardiac Surgery: No Ear Surgery: No Endocrine Surgery: No Eye Surgery: No Genitourinary Surgery: No Gynecologic Surgery: No Insulin Pump: No Joint Replacement: No Neurologic Surgery: Yes (C2-3, C4-5 FUSIONS (NECK SURG X3)) Oral Surgery: No Pacemaker: No Thoracic Surgery: No Other Surgery: Yes Social History Alcohol Use: Yes ([facility]) Tobacco Use: No (quit 14 years ago ) 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) Allergies-Medications (Allergen,Severity, Reaction): Coded Allergies: amoxicillin (Unverified Allergy, Severe, Itching, 09/10/17) ciprofloxacin (Verified Allergy, Severe, Anaphylaxis, 09/10/17) codeine (Unverified Allergy, Severe, Itching, 09/10/17) losartan (Verified Allergy, Severe, Anaphylaxis, 09/10/17) methocarbamol (Verified Allergy, Severe, Anaphylaxis, 09/10/17) Reported Meds & Prescriptions Reported Meds & Active Scripts Active Lantus Inj (Insulin Glargine) 1,000 Unit/10 Ml Vial 30 Units SQ HS Zantac (Ranitidine HCl) 150 Mg Tab 150 Mg PO BID Diphenhydramine (Diphenhydramine HCl) 25 Mg Cap 25 Mg PO Q6H PRN Deltasone (Prednisone) 20 Mg Tab 40 Mg PO DAILY Epipen 2-Moy Inj (Epinephrine) 0.3 Mg/0.3 Ml Pfpen 0.3 Mg IM ONCE PRN Reported Lorazepam 0.5 Mg Tab 0.5 Mg PO HS PRN Citalopram (Citalopram Hydrobromide) 20 Mg Tab 20 Mg PO DAILY Review of Systems Except as stated in HPI: all other systems reviewed are Neg General / Constitutional: Positive: Fever, Chills Cardiovascular: Positive: Chest Pain or Discomfort Respiratory: Positive: Cough, Shortness of Breath, Pleuritic Pain Gastrointestinal: Positive: Nausea Psychiatric: Positive: Anxiety Physical Exam Narrative GENERAL: Overweight, well-developed, alert female. Appears uncomfortable, no acute distress. SKIN: Warm and dry. HEAD: Atraumatic. Normocephalic. EYES: Pupils equal and round. No scleral icterus. No injection or drainage. ENT: No nasal bleeding or discharge. Mucous membranes pink and moist. NECK: Trachea midline. No JVD. CARDIOVASCULAR: Tachycardic RESPIRATORY: No accessory muscle use. Diminished GASTROINTESTINAL: Abdomen soft, non-tender, nondistended. Hepatic and splenic margins not palpable. MUSCULOSKELETAL: Extremities without clubbing, cyanosis, or edema. No obvious deformities. NEUROLOGICAL: Awake and alert. No obvious cranial nerve deficits. Motor grossly within normal limits. Five out of 5 muscle strength in the arms and legs. Normal speech. PSYCHIATRIC: Anxious mood and affect; insight and judgment normal. Data Data Last Documented VS Vital Signs Date Time Temp Pulse Resp B/P (MAP) Pulse Ox O2 Delivery O2 Flow Rate FiO2 09/10/17 21:39 95 Room Air 09/10/17 20:17 104 28 179/134 (149) 09/10/17 19:39 100.5 Orders Orders Sepsis Workup Initiated (09/10/17 ) Complete Blood Count With Diff (09/10/17 20:17) Comprehensive Metabolic Panel (09/10/17 20:17) Prothrombin Time / Inr (Pt) (09/10/17 20:17) Act Partial Throm Time (Ptt) (09/10/17 20:17) Lactic Acid Sepsis Protocol (09/10/17 20:17) Magnesium (Mg) (09/10/17 20:17) Ckmb (Isoenzyme) Profile (09/10/17 20:17) Troponin I (09/10/17 20:17) Urinalysis - C+S If Indicated (09/10/17 20:17) Blood Culture (09/10/17 20:17) Chest, Single Ap (09/10/17 20:17) Blood Glucose (09/10/17 20:17) Ecg Monitoring (09/10/17 20:17) Iv Access Insert/Monitor (09/10/17 20:17) Oximetry (09/10/17 20:17) Oxygen Administration (09/10/17 20:17) Ondansetron Inj (Zofran Inj) (09/10/17 20:30) Morphine Inj (Morphine Inj) (09/10/17 20:30) Morphine Inj (Morphine Inj) (09/10/17 20:30) CKMB (09/10/17 20:25) CKMB% (09/10/17 20:25) Ct Pulmonary Angiogram (09/10/17 ) Electrocardiogram (09/10/17 20:13) Morphine Inj (Morphine Inj) (09/10/17 22:00) Iohexol 350 Inj (Omnipaque 350 Inj) (09/10/17 22:49) Labs Laboratory Tests Test 09/10/17 20:25 09/10/17 20:37 09/10/17 20:39 White Blood Count 10.8 TH/MM3 Red Blood Count 4.53 MIL/MM3 Hemoglobin 12.5 GM/DL Hematocrit 38.3 % Mean Corpuscular Volume 84.5 FL Mean Corpuscular Hemoglobin 27.6 PG Mean Corpuscular Hemoglobin Concent 32.7 % Red Cell Distribution Width 15.2 % Platelet Count 219 TH/MM3 Mean Platelet Volume 8.5 FL Neutrophils (%) (Auto) 80.3 % Lymphocytes (%) (Auto) 13.3 % Monocytes (%) (Auto) 4.7 % Eosinophils (%) (Auto) 1.4 % Basophils (%) (Auto) 0.3 % Neutrophils # (Auto) 8.6 TH/MM3 Lymphocytes # (Auto) 1.4 TH/MM3 Monocytes # (Auto) 0.5 TH/MM3 Eosinophils # (Auto) 0.1 TH/MM3 Basophils # (Auto) 0.0 TH/MM3 CBC Comment DIFF FINAL Differential Comment Prothrombin Time 10.3 SEC Prothromb Time International Ratio 0.9 RATIO Activated Partial Thromboplast Time 25.2 SEC Blood Urea Nitrogen 13 MG/DL Creatinine 0.95 MG/DL Random Glucose 96 MG/DL Total Protein 8.2 GM/DL Albumin 3.7 GM/DL Calcium Level 8.4 MG/DL Magnesium Level 1.8 MG/DL Alkaline Phosphatase 103 U/L Aspartate Amino Transf (AST/SGOT) 23 U/L Alanine Aminotransferase (ALT/SGPT) 26 U/L Total Bilirubin 0.5 MG/DL Sodium Level 136 MEQ/L Potassium Level 3.9 MEQ/L Chloride Level 102 MEQ/L Carbon Dioxide Level 27.5 MEQ/L Anion Gap 7 MEQ/L Estimat Glomerular Filtration Rate 75 ML/MIN Total Creatine Kinase 159 U/L Creatine Kinase MB 1.0 NG/ML Troponin I LESS THAN 0.02 NG/ML Lactic Acid Level 1.1 mmol/L Urine Color LIGHT-YELLOW Urine Turbidity CLEAR Urine pH 8.0 Urine Specific [place] 1.013 Urine Protein NEG mg/dL Urine Glucose (UA) NEG mg/dL Urine Ketones NEG mg/dL Urine Occult Blood NEG Urine Nitrite NEG Urine Bilirubin NEG Urine Urobilinogen LESS THAN 2.0 MG/DL Urine Leukocyte Esterase SMALL Urine RBC 1 /hpf Urine WBC 5 /hpf Urine Squamous Epithelial Cells 7 /hpf Urine Mucus FEW /lpf Microscopic Urinalysis Comment CATH-CULT NOT IND MDM Medical Decision Making Medical Screen Exam Complete: Yes Emergency Medical Condition: Yes Medical Record Reviewed: Yes Interpretation(s) Vital Signs Date Time Temp Pulse Resp B/P (MAP) Pulse Ox O2 Delivery O2 Flow Rate FiO2 09/10/17 20:17 104 28 179/134 (149) 99 Room Air 09/10/17 19:39 100.5 92 24 174/116 (135) 98 Room Air Differential Diagnosis Pneumonia versus bronchitis versus pleurisy versus pulmonary embolism versus UTI Narrative Course Patient presented with an abrupt onset of left-sided what appeared to be pleuritic chest pain onset was just prior to arrival. She was tachycardic and hypertensive on arrival. Labs and imaging ordered and pending. Morphine ordered for pain. Temp was reassessed at 99.7. Sepsis protocol initiated. CBC with no acute findings Lactic acid 1.1 Cardiac enzymes are negative 1 set Chemistry with no acute findings Coags reviewed and are unremarkable Urinalysis is unremarkable Chest x-ray with no acute findings, mildly tortuous aorta, previous fusion of the cervical spine. The chest x-ray was read by the radiologist. Due to patient's ongoing complaint of chest pain a CT pulmonary angiogram is ordered and pending. Care of patient will be transferred to Dr. Purcell at the end of my shift who will determine patient's disposition. Elena Kuamr CENTRAL SUPPLY ASSISTANT Sep 10, 2017 20:36
[2017-09-10 20:51] LABS: AUTOMATED NEUTROPHIL # 8.6 TH/MM3 (1.8-7.7); BASOPHIL % 0.3 % (0.0-2.0); EOSINOPHIL # 0.1 TH/MM3 (0-0.4); EOSINOPHIL % 1.4 % (0.0-4.0); HEMATOCRIT 38.3 % (35.0-46.0); HEMO FLAGS DIFF FINAL; LYMPH % 13.3 % (9.0-44.0); LYMPHOCYTE # 1.4 TH/MM3 (1.0-4.8); MEAN CELL VOLUME 84.5 FL (80.0-100.0); MEAN CORPUSCULAR HEMOGLOBIN 27.6 PG (27.0-34.0); MEAN CORPUSCULAR HGB CONC 32.7 % (32.0-36.0); MONO % 4.7 % (0.0-8.0); NEUT % 80.3 % (16.0-70.0); PLATELET COUNT 219 TH/MM3 (150-450); RED BLOOD COUNT 4.53 MIL/MM3 (4.00-5.30); RED CELL DISTRIBUTION WIDTH 15.2 % (11.6-17.2); WHITE BLOOD COUNT 10.8 TH/MM3 (4.0-11.0)
[2017-09-10 20:54] LABS: BLOOD, URINE NEG (NEG); COMMENT (UR) CATH-CULT NOT IND; CULTURE IF INDICATED CATH CULTURE NOT IND; GLUCOSE,URINE NEG (NEG); KETONE, URINE NEG (NEG); MUCUS URINE FEW /lpf (OCC); NITRITE,URINE NEG (NEG); SQUAMOUS EPITHELIAL CELL URINE 7 /hpf (0-5); URINE COLOR LIGHT-YELLOW (YELLW/STRAW)
[2017-09-10 21:03] LABS: APTT (PATIENT) 25.2 SEC (24.3-30.1); INTERNATIONAL NORMALIZED RATIO 0.9 RATIO; PROTHROMBIN TIME - PATIENT 10.3 SEC (9.8-11.6)
[2017-09-10 21:08] LABS: ALT (GPT) 26 U/L (10-53)
[2017-09-10 21:10] LABS: ANION GAP 7 MEQ/L (5-15); AST (GOT) 23 U/L (15-37); BICARBONATE 27.5 MEQ/L (21.0-32.0); BLOOD UREA NITROGEN 13 MG/DL (7-18); CHLORIDE 102 MEQ/L (98-107); GLOMERULAR FILTRATION RATE 75 ML/MIN (>89); MAGNESIUM 1.8 MG/DL (1.5-2.5); SODIUM (NA) 136 MEQ/L (136-145)
[2017-09-10 21:14] LABS: POTASSIUM 3.9 MEQ/L (3.5-5.1)
--- NOTE | 2017-09-10 21:14 | RADRPT ---
EXAM DATE/TIME: 09/10/2017 20:37 [facility] COMPARISON: No previous studies available for comparison. INDICATIONS : Short of breath and vomiting MEDICAL HISTORY : None. SURGICAL HISTORY : None. ENCOUNTER: Initial ACUITY: 1 day PAIN SCORE: 10/10 LOCATION: chest FINDINGS: A single view of the chest demonstrates the lungs to be symmetrically aerated without evidence of mas s, infiltrate or effusion. The cardiomediastinal contours are unremarkable. Osseous structures are intact. Previous fusion cervical spine. CONCLUSION: 1. No acute findings. Mildly tortuous aorta. Previous fusion cervical spine. Phong Chambers MD on September 10, 2017 at 21:12 Board Certified Radiologist. This report was verified electronically.
[2017-09-10 21:15] LABS: ALKALINE PHOSPHATASE 103 U/L (45-117); CREATINE KINASE 159 U/L (26-192); TOTAL BILIRUBIN ADULT 0.5 MG/DL (0.2-1.0)
[2017-09-10] MEDS ORDERED: IOHEXOL 350 MG/ML 10 ML VIAL (for RAD DIAG) IVCONTRAST ONE (22:49)
--- NOTE | 2017-09-10 23:07 | PD ---
Physical Exam Date Seen by Provider: Sep 10, 2017 Time Seen by Provider: 23:01 Narrative Accepted in transfer of care GENERAL: Well developed well-nourished female in no acute distress no respiratory distress SKIN: Warm and dry. Multiple excoriated abrasions to the bilateral upper extremities right greater than left which patient reports has been present since her last admission for allergic reaction. HEAD: Normocephalic. EYES: No scleral icterus. No injection or drainage. NECK: Supple, trachea midline. No JVD or lymphadenopathy. CARDIOVASCULAR: Regular rate and rhythm without murmurs, gallops, or rubs. Chest wall: Reproducibly tender to palpation and produces the pain of presentation with palpation. No hives no urticaria no vesicles no pustules no induration no ecchymosis no abrasion. RESPIRATORY: Breath sounds equal bilaterally. No accessory muscle use. GASTROINTESTINAL: Abdomen soft, non-tender, nondistended. Data Data Last Documented VS Vital Signs Date Time Temp Pulse Resp B/P (MAP) Pulse Ox O2 Delivery O2 Flow Rate FiO2 09/10/17 23:21 100.4 85 20 202/122 (148) 96 Room Air Orders Orders Sepsis Workup Initiated (09/10/17 ) Complete Blood Count With Diff (09/10/17 20:17) Comprehensive Metabolic Panel (09/10/17 20:17) Prothrombin Time / Inr (Pt) (09/10/17 20:17) Act Partial Throm Time (Ptt) (09/10/17 20:17) Lactic Acid Sepsis Protocol (09/10/17 20:17) Magnesium (Mg) (09/10/17 20:17) Ckmb (Isoenzyme) Profile (09/10/17 20:17) Troponin I (09/10/17 20:17) Urinalysis - C+S If Indicated (09/10/17 20:17) Blood Culture (09/10/17 20:17) Chest, Single Ap (09/10/17 20:17) Blood Glucose (09/10/17 20:17) Ecg Monitoring (09/10/17 20:17) Iv Access Insert/Monitor (09/10/17 20:17) Oximetry (09/10/17 20:17) Oxygen Administration (09/10/17 20:17) Ondansetron Inj (Zofran Inj) (09/10/17 20:30) Morphine Inj (Morphine Inj) (09/10/17 20:30) Morphine Inj (Morphine Inj) (09/10/17 20:30) CKMB (09/10/17 20:25) CKMB% (09/10/17 20:25) Ct Pulmonary Angiogram (09/10/17 ) Electrocardiogram (09/10/17 20:13) Morphine Inj (Morphine Inj) (09/10/17 22:00) Iohexol 350 Inj (Omnipaque 350 Inj) (09/10/17 22:49) Ketorolac Inj (Toradol Inj) (09/10/17 23:15) Influenzae A/B Antigen (09/10/17 23:21) Clonidine (Catapres) (09/10/17 23:30) Cetirizine (Zyrtec) (09/11/17 01:30) Famotidine Inj (Pepcid Inj) (09/11/17 01:30) Labs Laboratory Tests Test 09/10/17 20:25 09/10/17 20:37 09/10/17 20:39 White Blood Count 10.8 TH/MM3 Red Blood Count 4.53 MIL/MM3 Hemoglobin 12.5 GM/DL Hematocrit 38.3 % Mean Corpuscular Volume 84.5 FL Mean Corpuscular Hemoglobin 27.6 PG Mean Corpuscular Hemoglobin Concent 32.7 % Red Cell Distribution Width 15.2 % Platelet Count 219 TH/MM3 Mean Platelet Volume 8.5 FL Neutrophils (%) (Auto) 80.3 % Lymphocytes (%) (Auto) 13.3 % Monocytes (%) (Auto) 4.7 % Eosinophils (%) (Auto) 1.4 % Basophils (%) (Auto) 0.3 % Neutrophils # (Auto) 8.6 TH/MM3 Lymphocytes # (Auto) 1.4 TH/MM3 Monocytes # (Auto) 0.5 TH/MM3 Eosinophils # (Auto) 0.1 TH/MM3 Basophils # (Auto) 0.0 TH/MM3 CBC Comment DIFF FINAL Differential Comment Prothrombin Time 10.3 SEC Prothromb Time International Ratio 0.9 RATIO Activated Partial Thromboplast Time 25.2 SEC Blood Urea Nitrogen 13 MG/DL Creatinine 0.95 MG/DL Random Glucose 96 MG/DL Total Protein 8.2 GM/DL Albumin 3.7 GM/DL Calcium Level 8.4 MG/DL Magnesium Level 1.8 MG/DL Alkaline Phosphatase 103 U/L Aspartate Amino Transf (AST/SGOT) 23 U/L Alanine Aminotransferase (ALT/SGPT) 26 U/L Total Bilirubin 0.5 MG/DL Sodium Level 136 MEQ/L Potassium Level 3.9 MEQ/L Chloride Level 102 MEQ/L Carbon Dioxide Level 27.5 MEQ/L Anion Gap 7 MEQ/L Estimat Glomerular Filtration Rate 75 ML/MIN Total Creatine Kinase 159 U/L Creatine Kinase MB 1.0 NG/ML Troponin I LESS THAN 0.02 NG/ML Lactic Acid Level 1.1 mmol/L Urine Color LIGHT-YELLOW Urine Turbidity CLEAR Urine pH 8.0 Urine Specific [place] 1.013 Urine Protein NEG mg/dL Urine Glucose (UA) NEG mg/dL Urine Ketones NEG mg/dL Urine Occult Blood NEG Urine Nitrite NEG Urine Bilirubin NEG Urine Urobilinogen LESS THAN 2.0 MG/DL Urine Leukocyte Esterase SMALL Urine RBC 1 /hpf Urine WBC 5 /hpf Urine Squamous Epithelial Cells 7 /hpf Urine Mucus FEW /lpf Microscopic Urinalysis Comment CATH-CULT NOT IND MDM Medical Record Reviewed: Yes Supervised Visit with BRISA: Yes Differential Diagnosis Chest pain atypical chest pain musculoskeletal pain chronic pruritus contact dermatitis PE viral syndrome pneumonia influenza Narrative Course accepted in transfer of care; patient rates reproducible chest wall pain. Lab values and imaging studies are grossly within normal limits except for nodule found on CT pulmonary angiogram; no PE; patient has reproducible chest wall pain and given a one-time dose of Toradol. Patient noted to have persistently elevated blood pressure and clonidine 0.1 mg ordered Patient resting comfortably pain is resolved after Toradol 30 mg IV; no she reports blood pressures come down with administration of clonidine Patient complains of pruritus to the right arm which she states has been present intermittently since her diagnosis of an allergic reaction at the the beginning of August. Because of complain of pruritus without urticaria or reaction or evidence of anaphylaxis or acute allergic reaction patient will be given Zyrtec 10 mg by mouth for pruritus and also H2 brittany to help her any symptoms. Patient is otherwise stable for outpatient management at this time. Diagnosis Primary Impression: Chest wall pain Additional Impression: Chronic pruritus Referrals: Primary Care Physician call for appointment Patient Instructions: General Instructions Additional Instruction: Follow-up with your primary care provider Take chronic medications as chronically prescribed Increase fluid hydration May use [id number] Zyrtec 10 mg daily as needed for rash and pruritus Return to the emergency department for any concerns or change in condition Disposition: 01 DISCHARGE HOME Condition: Stable Janet Purcell MD Sep 10, 2017 23:07
--- NOTE | 2017-09-10 23:10 | RADRPT ---
EXAM DATE/TIME: 09/10/2017 22:38 [facility] COMPARISON: CHEST SINGLE AP, September 10, 2017, 20:37. INDICATIONS : Chest pain. IV CONTRAST: 75 cc Omnipaque 350 (iohexol) IV RADIATION DOSE: 11.77 CTDIvol (mGy) MEDICAL HISTORY : None SURGICAL HISTORY : None. ENCOUNTER: Initial ACUITY: 1 day PAIN SCALE: 5/10 LOCATION: chest TECHNIQUE: Volumetric scanning of the chest was performed using a pulmonary embolism protocol MIP images were re constructed. Using automated exposure control and adjustment of the mA and/or kV according to patien t size, radiation dose was kept as low as reasonably achievable to obtain optimal diagnostic quality images. DICOM format image data is available electronically for review and comparison. Follow-up recommendations for detected pulmonary nodules are based at a minimum on nodule size and pa tient risk factors according to Fleischner Society Guidelines. FINDINGS: PULMONARY ARTERIES: No filling defects are seen in the pulmonary arteries through the segmental level. LUNGS: There is no consolidation or pneumothorax . There is a single 4 mm noncalcified pulmonary nodule in t he left lower lobe best seen on axial image #68. PLEURAE: There is no pleural thickening or pleural effusion. MEDIASTINUM: There is good visualization of the great vessels of the middle mediastinum. No evidence of mediastin al or hilar adenopathy/mass. MUSCULOSKELETAL: Within normal limits for patient age. MISCELLANEOUS: The visualized upper abdominal organs demonstrate no acute abnormality. CONCLUSION: 1. No evidence of pulmonary emboli. 2. 4 mm noncalcified pulmonary nodule in left lower lobe. A 6 month followup noncontrast chest CT is recommended if the patient is at high risk. The patient smoking status and other risk factors are not known. Luís Schwartz MD on September 10, 2017 at 23:03 Board Certified Radiologist. This report was verified electronically.
[2017-09-10] MEDS ORDERED: KETOROLAC TROMETHAMINE 30 MG/ML (IVP) VIAL IV PUSH ONE (23:15)
[2017-09-10 23:21] VITALS: BP 202/122; PULSE 85; RESP 20; TEMP 100.4; O2SAT 96
[2017-09-10] MEDS ORDERED: cloNIDine HCL 0.1 MG TAB PO ONE (23:30)
[2017-09-11 01:20] VITALS: BP 133/76; PULSE 74; RESP 16; O2SAT 97
[2017-09-11] MEDS ORDERED: FAMOTIDINE 20 MG/2 ML VIAL IV PUSH ONE (01:30)
[2017-09-11] MEDS ORDERED: CETIRIZINE HCL 10 MG TAB PO ONE (01:30)
[2017-09-11 02:38] VITALS: BP 146/83
--- NOTE | 2017-09-11 13:19 | EKG ---
Date Performed: 09/10/2017 Time Performed: 20:13:45 PTAGE: 51 years EKG: SINUS TACHYCARDIA Since previous tracing, no significant change noted ABNORMAL RHYTHM ECG PREVIOUS TRACING : 08/25/2013 20.45 DOCTOR: Ho Del Cid Interpretating Date/Time 09/11/2017 13:16:34
== END 2017-09-11 03:23 | disposition home or self-care (01) ==
LOC: NEPC 19:35
DX: R07.89 Other chest pain (principal); L29.9 Pruritus, unspecified; R00.0 Tachycardia, unspecified; R05 Cough; R06.02 Shortness of breath; R11.0 Nausea; R94.31 Abnormal electrocardiogram [ECG] [EKG]; R91.1 Solitary pulmonary nodule; I10 Essential (primary) hypertension
CPT/HCPCS: 71010; 71275; 80053; 81001; 82550; 82552; 83605; 83735; 84484; 85025; 85610; 85730; 87040; 87804; 93005; 96374; 96375; 96376; 99285; J1885; J2270; J2405; Q9967

== ENCOUNTER 2017-11-17 19:24 | Emergency (ER) | payer MEDICAID, MEDICARE ==
[~2017-11-17] VITALS: Ht 157.5 cm; Wt 78.2 kg
[~2017-11-17 19:24] MED LIST changes: -OMEP40CA2 PO
[2017-11-17 19:33] VITALS: BP 142/80; PULSE 100; RESP 16; TEMP 98.6; O2SAT 99
--- NOTE | 2017-11-17 20:09 | PD ---
HPI Chief Complaint: Abdominal Pain Time Seen by Provider: 19:58 Travel History International Travel<30 days: No Contact w/Intl Traveler<30days: No Traveled to known affect area: No History of Present Illness HPI The patient is a 52 year old female who presents to the [facility] emergency department with a history of generalized abdominal cramping that began suddenly at 3 PM. She reports that he was followed by nausea and vomiting 3-4 times. She reports that now she also has diarrhea. She reports that she was incontinent of stool related to the diarrhea. She reports the stool is brown in color. She denies having any blood in her stool or black or tarry stools. She denies having any known fevers. She denies having any dysuria, hematuria, urinary urgency, or frequency. She denies having any sick contacts, foreign travel, recent antibiotic use, or camping. The patient reports that she last checked her blood sugar yesterday. She is diabetic. She reports that her blood sugar was 166 yesterday. She has not administered any insulin today. On review of systems, the patient denies having any recent cough or congestion, neck pain, chest pain, shortness of breath, or neurologic symptoms. [facility] Past Medical History Narrative Medical The patient's past medical history is significant for acid reflux, asthma, hypertension, diabetes mellitus. Anemia: Yes Arthritis: No Asthma: Yes Autoimmune Disease: No Blood Disorders: No Anxiety: Yes Depression: Yes Heart Rhythm Problems: No Cancer: No Cardiovascular Problems: No High Cholesterol: No Chemotherapy: No Chest Pain: No Congestive Heart Failure: No COPD: No Diabetes: Yes Diminished Hearing: No Endocrine: No Gastrointestinal Disorders: No Genitourinary: No Hypertension: Yes Immune Disorder: No Musculoskeletal: Yes Neurologic: No Psychiatric: Yes Reproductive: No Respiratory: Yes Migraines: Yes (PT HAS HAS OF UNSPECIFIED KIND) Radiation Therapy: No Sleep Apnea: No : 2 Para: 1 Miscarriage: 0 : 1 Tubal Ligation: Yes (1991) Past Surgical History Narrative Surgical The patient's past surgical history is significant for bilateral tubal ligation , hysterectomy, heel surgery, left elbow surgery, neck surgery related to trauma. 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) Allergies-Medications (Allergen,Severity, Reaction): Coded Allergies: amoxicillin (Unverified Allergy, Severe, Itching, 11/17/17) ciprofloxacin (Verified Allergy, Severe, Anaphylaxis, 11/17/17) codeine (Unverified Allergy, Severe, Itching, 11/17/17) losartan (Verified Allergy, Severe, Anaphylaxis, 11/17/17) PATIENT CURRENTLY TAKING STATES "I DON'T KNOW IF IM ALLERGIC" methocarbamol (Verified Allergy, Severe, Anaphylaxis, 11/17/17) Reported Meds & Prescriptions Reported Meds & Active Scripts Active Lantus Inj (Insulin Glargine) 1,000 Unit/10 Ml Vial 30 Units SQ HS Zantac (Ranitidine HCl) 150 Mg Tab 150 Mg PO BID Diphenhydramine (Diphenhydramine HCl) 25 Mg Cap 25 Mg PO Q6H PRN Deltasone (Prednisone) 20 Mg Tab 40 Mg PO DAILY Epipen 2-Moy Inj (Epinephrine) 0.3 Mg/0.3 Ml Pfpen 0.3 Mg IM ONCE PRN Reported Docusate Sodium 100 Mg Cap 100 Mg PO BID Gabapentin 300 Mg Cap 300 Mg PO TID Omeprazole 40 Mg Cap 40 Mg DAILY Losartan-Hydrochlorothiazide 100-25 Mg Tab 1 Tab PO DAILY Aspirin Low Dose (Aspirin) 81 Mg Chew 81 Mg CHEW DAILY Zolpidem (Zolpidem Tartrate) 10 Mg Tab 10 Mg PO HS PRN Lorazepam 0.5 Mg Tab 0.5 Mg PO HS PRN Citalopram (Citalopram Hydrobromide) 20 Mg Tab 20 Mg PO DAILY Review of Systems Except as stated in HPI: all other systems reviewed are Neg General / Constitutional: No: Fever Eyes: No: Visual changes HENT: No: Headaches Cardiovascular: No: Chest Pain or Discomfort Respiratory: No: Shortness of Breath Gastrointestinal: Positive: Nausea, Vomiting, Diarrhea, Abdominal Pain, Changes in Bowel Habits, No: Hematemesis, Hematochezia, Indigestion, Loss of Appetite Genitourinary: No: Dysuria Musculoskeletal: No: Pain Skin: No Rash Neurologic: No: Weakness Psychiatric: No: Depression Endocrine: No: Polydipsia Hematologic/Lymphatic: No: Easy Bruising Physical Exam Narrative General: The patient is a well-developed well-nourished female who is uncomfortable appearing on examination, laying on her side, intermittently moaning. Head and Neck exam: Head is normocephalic atraumatic. Eyes: EOMI, pupils are equal round and reactive to light. Nose: Midline septum with pink mucous membranes Mouth: Dentition unremarkable. Moist mucus membranes. Posterior oropharynx is not erythematous. No tonsillar hypertrophy. Uvula midline. Airway patent. Neck: No palpable lymphadenopathy. No nuchal rigidity. No thyromegaly. Cardiovascular: Regular rate and rhythm without murmurs, gallops, or rubs. Lungs: Clear to auscultation bilaterally. No wheezes, rhonchi, or rales. Abdomen: Soft, with generalized tenderness on palpation, the worse area of tenderness on palpation of the midepigastric area. No focal tenderness on palpation over McBurney's point. No guarding, rebound, or rigidity. Negative [place] sign. Extremities: No clubbing, cyanosis, or edema. 2+ pulses in all 4 extremities. No calf tenderness. Back: No spinous process tenderness to palpation. Bilateral CVA tenderness is reported. Neurologic Exam: Grossly nonfocal. Skin Exam: No rash noted. Intact skin that is warm and dry. Data Data Last Documented VS Vital Signs Date Time Temp Pulse Resp B/P (MAP) Pulse Ox O2 Delivery O2 Flow Rate FiO2 11/17/17 20:12 92 16 99 Room Air 11/17/17 19:33 98.6 Orders Orders Electrocardiogram (11/17/17 20:00) Complete Blood Count With Diff (11/17/17 20:00) Comprehensive Metabolic Panel (11/17/17 20:00) Creatine Kinase (Cpk) (11/17/17 20:00) Ckmb (Isoenzyme) Profile (11/17/17 20:00) Troponin I (11/17/17 20:00) Lipase (11/17/17 20:00) Urinalysis - C+S If Indicated (11/17/17 20:00) Chest, Single Ap (11/17/17 20:00) Iv Access Insert/Monitor (11/17/17 20:00) Ecg Monitoring (11/17/17 20:00) Oximetry (11/17/17 20:00) Sodium Chlor 0.9% 1000 Ml Inj (Ns 1000 M (11/17/17 20:30) Ondansetron Inj (Zofran Inj) (11/17/17 20:30) CKMB (11/17/17 20:13) CKMB% (11/17/17 20:13) Sodium Chlor 0.9% 1000 Ml Inj (Ns 1000 M (11/17/17 22:45) Ct Abd/Pel W Iv Contrast(Rout) (11/17/17 22:36) Morphine Inj (Morphine Inj) (11/17/17 23:00) Metoclopramide Inj (Reglan Inj) (11/17/17 23:45) Potassium Chloride (Kcl) (11/17/17 23:45) Iohexol 350 Inj (Omnipaque 350 Inj) (11/17/17 23:58) Ed Discharge Order (11/18/17 01:31) Labs Laboratory Tests Test 11/17/17 20:13 11/17/17 23:45 White Blood Count 15.9 TH/MM3 Red Blood Count 4.37 MIL/MM3 Hemoglobin 12.0 GM/DL Hematocrit 36.4 % Mean Corpuscular Volume 83.2 FL Mean Corpuscular Hemoglobin 27.4 PG Mean Corpuscular Hemoglobin Concent 32.9 % Red Cell Distribution Width 15.1 % Platelet Count 290 TH/MM3 Mean Platelet Volume 9.2 FL Neutrophils (%) (Auto) 77.5 % Lymphocytes (%) (Auto) 16.4 % Monocytes (%) (Auto) 5.2 % Eosinophils (%) (Auto) 0.7 % Basophils (%) (Auto) 0.2 % Neutrophils # (Auto) 12.4 TH/MM3 Lymphocytes # (Auto) 2.6 TH/MM3 Monocytes # (Auto) 0.8 TH/MM3 Eosinophils # (Auto) 0.1 TH/MM3 Basophils # (Auto) 0.0 TH/MM3 CBC Comment DIFF FINAL Differential Comment Blood Urea Nitrogen 21 MG/DL Creatinine 1.03 MG/DL Random Glucose 208 MG/DL Total Protein 8.9 GM/DL Albumin 4.1 GM/DL Calcium Level 9.7 MG/DL Alkaline Phosphatase 96 U/L Aspartate Amino Transf (AST/SGOT) 17 U/L Alanine Aminotransferase (ALT/SGPT) 19 U/L Total Bilirubin 0.4 MG/DL Sodium Level 136 MEQ/L Potassium Level 3.0 MEQ/L Chloride Level 102 MEQ/L Carbon Dioxide Level 26.1 MEQ/L Anion Gap 8 MEQ/L Estimat Glomerular Filtration Rate 68 ML/MIN Total Creatine Kinase 397 U/L Creatine Kinase MB 1.5 NG/ML Creatine Kinase MB % 0.4 % Troponin I LESS THAN 0.02 NG/ML Lipase 187 U/L Urine Color YELLOW Urine Turbidity CLEAR Urine pH 5.[address] 1.018 Urine Protein NEG mg/dL Urine Glucose (UA) NEG mg/dL Urine Ketones NEG mg/dL Urine Occult Blood NEG Urine Nitrite NEG Urine Bilirubin NEG Urine Urobilinogen LESS THAN 2.0 MG/DL Urine Leukocyte Esterase TRACE Urine RBC 1 /hpf Urine WBC 1 /hpf Urine Squamous Epithelial Cells 1 /hpf Urine Mucus FEW /lpf Microscopic Urinalysis Comment CULT NOT INDICATED MDM Medical Decision Making Medical Screen Exam Complete: Yes Emergency Medical Condition: Yes Medical Record Reviewed: Yes Interpretation(s) Last Impressions Abdomen/Pelvis CT 11/17/172235 Signed Impressions: Service Date/Time: Friday, November 17, 2017 23:54 - CONCLUSION: 1. No acute findings. Small hiatal hernia. Mild fatty liver. Phong Chambers MD Chest X-Ray 11/17/171999 Signed Impressions: Service Date/Time: Friday, November 17, 2017 20:12 - CONCLUSION: No acute cardiopulmonary disease. Prieto Malagon MD Differential Diagnosis Gastroenteritis, versus colitis, versus DKA, versus pancreatitis Narrative Course During the course of the patients emergency department visit, the patients history, examination, and differential diagnosis were reviewed with the patient. The patient was placed on a surveillance monitor with oximetry and frequent blood pressure monitoring. The patient had IV access obtained and blood work sent for analysis. The patient had an EKG done on arrival that shows a sinus rhythm heart rate of 98, QRS duration is 92 ms, QTC 425 ms, no acute ST segment elevation. The patient was initially provided normal saline a 1 L IV fluid bolus, Zofran 4 mg IV. The patients laboratory studies were reviewed and remarkable for a white count of 15.9, hemoglobin 12, platelets 290 with 77.5 neutrophils, CMP is remarkable for potassium of 3.0 which was supplemented orally, BUN 21, creatinine 1.03, glucose 208, CPK 397 with an MB percent is 0.4, troponin I less than 0.02, lipase 187, urinalysis is unremarkable. Radiology studies were reviewed and remarkable for chest x-ray that shows no acute abnormality. CT scan of the abdomen and pelvis shows no acute abnormality, small hiatal hernia, mild fatty liver. The patient on reexamination after morphine for pain was administered was resting comfortably. The patient received a second liter of normal saline IV fluids. The patient reported feeling improved and had no further episodes of vomiting or diarrhea. The patient will be discharged home with a perception for Zofran. She is instructed to push fluids and get plenty of rest. She is instructed to stay hydrated with electrolyte rich solutions such as Pedialyte as well as supplementation of hydration with water. The patient is resting comfortably and feels better, is alert and in no distress. The patients results and examination findings were discussed with the patient. The repeat examination is unremarkable and benign. The history, exam, diagnostic testing, and current condition do not suggest any significant pathology to warrant further testing, continued ED treatment, admission, or surgical evaluation at this point. The vital signs have been stable. The patient does not have uncontrollable pain, intractable vomiting, or other significant symptoms. The patient's condition is stable and appropriate for discharge. The patient will pursue further outpatient evaluation with a primary care physician or other designated or consulting physician as indicated in the discharge instructions. The patient expressed understanding and was agreeable with this plan. NC disc disease Diagnosis Primary Impression: Abdominal cramping Additional Impression: Nausea, vomiting, and diarrhea Referrals: Primary Care Physician 2 days Patient Instructions: Abdominal Pain (ED), Acute Diarrhea (ED), Acute Nausea and Vomiting (ED), General Instructions Med/Other Pt SpecificInfo: Prescription(s) given Scripts Promethazine Supp (Phenergan Supp) 25 Mg Supp 25 MG RECTAL Q8HR Y for NAUSEA OR VOMITING, #3 SUPP 0 Refills Prov: Katelin Bunn MD 11/18/17 Disposition: 01 DISCHARGE HOME Condition: Stable Katelin Bunn MD Nov 17, 2017 20:09
[2017-11-17] MEDS ORDERED: OMEP40CA2 (20:10)
[2017-11-17] MEDS ORDERED: GABA300C5 PO (20:10)
[2017-11-17] MEDS ORDERED: DOCU100C15 PO (20:10)
[2017-11-17] MEDS ORDERED: ASPI81CH6 CHEW (20:10)
[2017-11-17] MEDS ORDERED: ZOLP10TA3 PO (20:10)
[2017-11-17] MEDS ORDERED: LOSA100T2 PO (20:10)
[2017-11-17 20:12] VITALS: PULSE 92; RESP 16; O2SAT 99
--- NOTE | 2017-11-17 20:26 | RADRPT ---
EXAM DATE/TIME: 11/17/2017 20:12 [facility] COMPARISON: CHEST SINGLE AP, September 10, 2017, 20:37. INDICATIONS : Chest pain and vomiting. MEDICAL HISTORY : None. SURGICAL HISTORY : Hysterectomy. Cervical fusion. ENCOUNTER: Initial ACUITY: 1 day PAIN SCORE: 10/10 LOCATION: Bilateral chest FINDINGS: The heart and nasal structures are stable. The pulmonary vascular pattern is normal. The lungs are cl ear. CONCLUSION: No acute cardiopulmonary disease. Prieto Malagon MD on November 17, 2017 at 20:23 Board Certified Radiologist. This report was verified electronically.
[2017-11-17 20:27] LABS: AUTOMATED NEUTROPHIL # 12.4 TH/MM3 (1.8-7.7); BASOPHIL % 0.2 % (0.0-2.0); EOSINOPHIL # 0.1 TH/MM3 (0-0.4); EOSINOPHIL % 0.7 % (0.0-4.0); HEMATOCRIT 36.4 % (35.0-46.0); LYMPH % 16.4 % (9.0-44.0); LYMPHOCYTE # 2.6 TH/MM3 (1.0-4.8); MEAN CELL VOLUME 83.2 FL (80.0-100.0); MEAN CORPUSCULAR HEMOGLOBIN 27.4 PG (27.0-34.0); MEAN CORPUSCULAR HGB CONC 32.9 % (32.0-36.0); MEAN PLATELET VOLUME 9.2 FL (7.0-11.0); MONO % 5.2 % (0.0-8.0); MONOCYTE # 0.8 TH/MM3 (0-0.9); NEUT % 77.5 % (16.0-70.0); PLATELET COUNT 290 TH/MM3 (150-450); RED BLOOD COUNT 4.37 MIL/MM3 (4.00-5.30); RED CELL DISTRIBUTION WIDTH 15.1 % (11.6-17.2); WHITE BLOOD COUNT 15.9 TH/MM3 (4.0-11.0)
[2017-11-17] MEDS ORDERED: SODIUM CHLOR 0.9% 1000 ML INJ 1,000 ML IV ONE ×2 (20:30→22:45)
[2017-11-17] MEDS ORDERED: ONDANSETRON HCL 4 MG/2 ML VIAL IV ONE (20:30)
[2017-11-17 20:44] LABS: ALBUMIN 4.1 GM/DL (3.4-5.0); AST (GOT) 17 U/L (15-37); BICARBONATE 26.1 MEQ/L (21.0-32.0); BLOOD UREA NITROGEN 21 MG/DL (7-18); CALCIUM 9.7 MG/DL (8.5-10.1); CHLORIDE 102 MEQ/L (98-107); CREATININE 1.03 MG/DL (0.50-1.00); GLOMERULAR FILTRATION RATE 68 ML/MIN (>89); GLUCOSE,RANDOM 208 MG/DL (74-106); LIPASE 187 U/L (73-393); SODIUM (NA) 136 MEQ/L (136-145)
[2017-11-17 20:45] LABS: ALT (GPT) 19 U/L (10-53)
[2017-11-17 20:49] LABS: ALKALINE PHOSPHATASE 96 U/L (45-117); TOTAL BILIRUBIN ADULT 0.4 MG/DL (0.2-1.0); TOTAL PROTEIN 8.9 GM/DL (6.4-8.2); TROPONIN I LESS THAN 0.02 NG/ML (0.02-0.05)
[2017-11-17] MEDS ORDERED: MORPHINE SULFATE 4 MG/ML INJ IV PUSH ONE (23:00)
[2017-11-17] MEDS ORDERED: POTASSIUM CHLORIDE 20 MEQ CONTROLLED RELEASE TAB PO ONE (23:45)
[2017-11-17] MEDS ORDERED: METOCLOPRAMIDE HCL 10 MG/2 ML VIAL IV PUSH ONE (23:45)
[2017-11-17 23:58] LABS: BILIRUBIN, URINE NEG (NEG); BLOOD, URINE NEG (NEG); GLUCOSE,URINE NEG (NEG); KETONE, URINE NEG (NEG); MUCUS URINE FEW /lpf (OCC); NITRITE,URINE NEG (NEG); PH, URINE 5.5 (5.0-8.5); SQUAMOUS EPITHELIAL CELL URINE 1 /hpf (0-5); URINE COLOR YELLOW (YELLW/STRAW); URINE LEUKOCYTE ESTERASE TRACE (NEG)
[2017-11-17] MEDS ORDERED: IOHEXOL 350 MG/ML 10 ML VIAL (for RAD DIAG) IVCONTRAST ONE (23:58)
--- NOTE | 2017-11-18 00:29 | RADRPT ---
EXAM DATE/TIME: 11/17/2017 23:54 [facility] COMPARISON: No previous studies available for comparison. INDICATIONS : Diffuse abdominal pain with vomiting. IV CONTRAST: 95 cc Omnipaque 350 (iohexol) IV ORAL CONTRAST: No oral contrast ingested. RADIATION DOSE: 8.96 CTDIvol (mGy) MEDICAL HISTORY : Hypertension. Gastroesophageal reflux disease. Diabetes. SURGICAL HISTORY : Hysterectomy. ENCOUNTER: Initial ACUITY: 1 day PAIN SCALE: 10/10 LOCATION: All quadrants. TECHNIQUE: Volumetric scanning of the abdomen and pelvis was performed. Using automated exposure control and ad justment of the mA and/or kV according to patient size, radiation dose was kept as low as reasonably achievable to obtain optimal diagnostic quality images. DICOM format image data is available electro nically for review and comparison. FINDINGS: The lung bases are clear. No acute findings in the liver, spleen, adrenals, kidneys or pancreas. No c alcified gallstones or biliary ductal dilatation. No free fluid. No bowel obstruction. No adenopathy. No acute bony abnormalities. Small hiatal hernia. CONCLUSION: 1. No acute findings. Small hiatal hernia. Mild fatty liver. Phong Chambers MD on November 18, 2017 at 0:22 Board Certified Radiologist. This report was verified electronically.
[2017-11-18] MEDS ORDERED: PROM1SUP7 RECTAL (01:32)
--- NOTE | 2017-11-18 09:41 | EKG ---
Date Performed: 11/17/2017 Time Performed: 20:09:25 PTAGE: 52 years EKG: Sinus rhythm NONSPECIFIC T-WAVE ABNORMALITY BORDERLINE ECG Since the prior tracing, there has been no significant change PREVIOUS TRACING : 09/10/2017 20.13 DOCTOR: Alfred Rivera Interpretating Date/Time 11/18/2017 09:40:47
== END 2017-11-18 01:55 | disposition home or self-care (01) ==
LOC: NEPC 19:24
DX: R10.9 Unspecified abdominal pain (principal); R19.7 Diarrhea, unspecified; R11.2 Nausea with vomiting, unspecified; K44.9 Diaphragmatic hernia without obstruction or gangrene; K76.0 Fatty (change of) liver, not elsewhere classified; E11.9 Type 2 diabetes mellitus without complications; F32.9 Major depressive disorder, single episode, unspecified; K21.9 Gastro-esophageal reflux disease without esophagitis; I10 Essential (primary) hypertension; R94.31 Abnormal electrocardiogram [ECG] [EKG]; Z79.4 Long term (current) use of insulin; Z87.891 Personal history of nicotine dependence
CPT/HCPCS: 71045; 74177; 80053; 81001; 82550; 82552; 83690; 84484; 85025; 93005; 96361; 96374; 96375; 99285; J2270; J2405; J2765; J7030; Q9967